=== PATIENT | female | born 1985 | race Caucasian/White ===

== ENCOUNTER 2018-01-22 13:12 | Emergency (ER) | END 2018-01-22 16:38 | disposition home or self-care (01) ==

== ENCOUNTER 2018-01-31 17:14 | Emergency (ER) | END 2018-01-31 21:21 | disposition home or self-care (01) ==

== ENCOUNTER 2018-02-25 12:22 | Emergency (ER) | END 2018-02-25 14:14 | disposition home or self-care (01) ==

== ENCOUNTER 2018-04-15 13:12 | Emergency (ER) | END 2018-04-15 15:47 | disposition home or self-care (01) ==